=== PATIENT | male | born 1995 | race Hispanic/Latino ===

== ENCOUNTER 2025-10-21 19:59 | Inpatient (IN) | payer SELFPAY ==
[~2025-10-21] VITALS: Ht 177.8 cm; Wt 83.6 kg
--- NOTE | 2025-10-21 20:45 | ERN ---
ED Note History of Present Illness Stated Complaint: EXTREME ABDOMINAL PAIN Chief Complaint: Abdominal Pain Time Seen by MD: 20:04 Time Seen by Midlevel: 20:19 Dictation: PATIENT IS A 30-YEAR-OLD MALE COMING IN TONIGHT WITH COMPLAINTS OF PERIUMBILICAL PAIN NAUSEA VOMITING ONSET WAS YESTERDAY. HE DENIES FEVER CHILLS. STATES HE HAS NOT HAD A BOWEL MOVEMENT. HE STATES HE HAS A PRIMARY CARE DOCTOR HOWEVER DID NOT GO TODAY BECAUSE HE THOUGHT IT WAS GOING TO GO AWAY. STATES HE STILL HAS A APPENDIX Allergies: Coded Allergies: No Known Drug Allergies (Unverified Allergy, Unknown, 10/21/25) Past Medical History Past Medical History: No Pertinent History Surgical History: None RN Note Reviewed/Agreed w/PFSH: Yes Review of System Dictation CONSTITUTIONAL: NEGATIVE EXCEPT FOR HPI HEAD/FACE: NEGATIVE EXCEPT FOR HPI EENT: NEGATIVE EXCEPT FOR HPI RESPIRATORY: NEGATIVE EXCEPT FOR HPI GASTROINTESTINAL/ABDOMINAL: NEGATIVE EXCEPT FOR HPI PERIUMBILICAL PAIN WITH NAUSEA VOMITING GENITOURINARY: NEGATIVE EXCEPT FOR HPI MUSCULOSKELETAL: NEGATIVE EXCEPT FOR HPI INTEGUMENTARY: NEGATIVE EXCEPT FOR HPI NEUROLOGICAL/PSYCH: NEGATIVE EXCEPT FOR HPI HEMATOLOGIC/LYMPHATIC: NEGATIVE EXCEPT FOR HPI ALL SYSTEMS NEGATIVE, EXCEPT NOTED ABOVE. 13 POINT REVIEW OF SYSTEMS ASSESSED AND ALL NEGATIVE EXCEPT FOR ABOVE. Initial Vital Sign VS Vital Signs Date Time Temp Pulse Resp B/P (MAP) Pulse Ox O2 Delivery O2 Flow Rate FiO2 10/21/25 20:00 98.8 96 16 104/77 99 0 10/21/25 23:31 Room Air* 21 Physical Exam Dictation VITAL SIGNS REVIEWED GENERAL APPEARANCE: ALERT, ORIENTED X 3, MODERATE ACUTE DISTRESS, WELL DEVELOPED, NOURISHED. HEAD AND FACE: NON-TRAUMATIC. EYES: PERRL, PINK CONJUNCTIVAS, EYELID NO TRAUMA, ANTERIOR CHAMBER WITH ARCUS SENILIS. EARS: PINNAS INTACT AND NO SIGNS OF TRAUMA OR ERYTHEMA EAR CANALS CLEAR AND NO DISCHARGE TM NO ERYTHEMA NOSE: NO DISCHARGE, NO BLEEDING. OROPHARYNX: MOUTH NORMAL, TONGUE PINK, PHARYNX CLEAR,NO ERYTHEMA, TONSILS NO EXUDATES, NO ABSCESSES NOTED, MUCOUS MEMBRANE MOIST NECK: SUPPLE, NON-TENDER, NO THYROMEGALY, NO MASSES, NO JVD, NO BRUITS BREAST:DEFERRED CHEST:NO TENDERNESS, NO CREPITUS, NO PARADOXICAL MOVEMENT, NO RETRACTIONS LUNGS:CLEAR, WELL-VENTILATED, SYMMETRIC, NO RALES, NO WHEEZING, NO RHONCHI, NO STRIDOR, GOOD BREATH SOUNDS BILATERALLY HEART: REGULAR RATE, REGULAR RHYTHM, NO MURMUR, NO GALLOPS VASCULAR: NO PERIPHERAL EDEMA, ABDOMEN: SOFT, POSITIVE BOWEL SOUNDS, NONDISTENDED, PATIENT IS GUARDING WITH EXQUISITE PERIUMBILICAL PAIN. RECTAL: DEFERRED GENITAL: DEFERRED NEUROLOGICAL: NORMAL SPEECH, MOTOR FUNCTION INTACT, SENSORY FUNCTION INTACT MUSCULOSKELETAL: NECK NONTENDER, FULL RANGE OF MOTION, BACK NONTENDER, FULL RANGE OF MOTION, EXTREMITIES: NONTENDER, FULL RANGE OF MOTION SKIN: COLOR PINK, DRY, NO TURGOR, NO RASH, NO LACERATIONS, NO ABRASIONS, NO CONTUSIONS. LYMPHATIC: DEFERRED Results (Laboratory/Radiology) Laboratory/Radiology Laboratory Tests Test 10/21/25 20:49 10/21/25 22:44 White Blood Count 15.9 K/uL (4.8-10.8) H Red Blood Count 4.63 MIL/uL (4.50-6.20) Hemoglobin 14.2 g/dL (14.0-18.0) Hematocrit 41.0 % (42-54) L Mean Corpuscular Volume 88.6 fL (79-99) Mean Corpuscular Hemoglobin 30.7 pg (27.0-33.0) Mean Corpuscular Hemoglobin Concent 34.6 g/dL (32.0-36.0) Red Cell Distribution Width 12.2 % (11.0-15.5) Platelet Count 236 K/uL (130-400) Mean Platelet Volume 10.0 fL (7.5-10.5) Immature Granulocyte % (Auto) 0.6 % (0-1) Neutrophils (%) (Auto) 87.3 % (40.0-77.0) H Lymphocytes (%) (Auto) 5.9 % (21.0-51.0) L Monocytes (%) (Auto) 6.1 % (3.0-13.0) Eosinophils (%) (Auto) 0.0 % (0.0-8.0) Basophils (%) (Auto) 0.1 % (0.0-5.0) Neutrophils # (Auto) 13.9 K/uL (1.8-7.7) H Lymphocytes # (Auto) 0.9 K/uL (1.0-4.8) L Monocytes # (Auto) 1.0 K/uL (0.1-1.0) Eosinophils # (Auto) 0.00 K/uL (0.00-0.70) Basophils # (Auto) 0.02 K/uL (0.00-0.20) Absolute Immature Granulocyte (auto 0.09 K/uL (0-1) Nucleated Red Blood Cells 0.0 % (0.0-0.19) White Cell Morphology Comment See comments Sodium Level 136 mmol/L (136-145) Potassium Level 3.5 mmol/L (3.5-5.1) Chloride Level 99 mmol/L (101-111) L Carbon Dioxide Level 26 mmol/L (21-32) Blood Urea Nitrogen 7 mg/dL (7-18) Creatinine 0.8 mg/dL (0.5-1.3) Glomerular Filtration Rate Calc 121 mL/min (>90) Random Glucose 119 mg/dL (70-105) H Total Calcium 9.1 mg/dL (8.5-10.1) Lipase 58 U/L (16-77) Urine Color LIGHT-YELLOW (YELLOW) Urine Appearance CLEAR (CLEAR) Urine pH 7.5 (5.0-8.0) Urine Specific Grace 1.018 (1.001-1.031) Urine Protein NEGATIVE mg/dL (NEGATIVE) Urine Glucose (UA) NEGATIVE mg/dL (NEGATIVE) Urine Ketones 5 mg/dL (NEGATIVE) H Urine Occult Blood NEGATIVE (NEGATIVE) Urine Nitrate NEGATIVE (NEGATIVE) Urine Bilirubin NEGATIVE mg/dL (NEGATIVE) Urine Urobilinogen 0.2 mg/dL (0.2-1.0) Urine Leukocyte Esterase NEGATIVE Sameer/uL Urine RBC 0-1 /HPF (0-1) Urine WBC 0-1 /HPF (0-1) Urine Bacteria None /HPF (None Seen) : 1995 SEX: M AGE: 30 LOCATION: [facility] ORDER 42 STATUS: REG ER REPORT#: [id number] SERVICE 41 REASON: PERIUMBILICAL PAIN NAUSEA VOMITING ORDERING PHYSICIAN: TISH GALDAMEZ PROCEDURE: ABD PEL W - CT ABDOMEN/PELVIS W/CONTRAST EXAM: CT Abdomen and Pelvis with IV contrast CLINICAL HISTORY: Periumbilical pain. Nausea and vomiting. TECHNIQUE: Postcontrast thin collimated axial CT images of the abdomen and pelvis were obtained with sagittal and coronal reformatted images also submitted. CT scan is done according to ALARA (As Low As Reasonably Achievable). COMPARISON: None. FINDINGS: The included lungs are clear. Mild fatty liver. No focal abnormality within the gallbladder, pancreas, spleen, adrenals, or kidneys. Unremarkable urinary bladder. The prostate is within normal limits. Diffusely dilated and thickened appendix with periappendiceal fat stranding, the appendix measures up to 1.3 cm in diameter. The features are compatible with acute appendicitis. Nondilated fluid-filled small and large bowel loops without any zone of transition; this could be a nonspecific finding, or may be present in the clinical setting of acute enterocolitis. No bowel obstruction Grossly unremarkable abdominal vessels. No pathological lymphadenopathy in the abdomen or pelvis. No ascites or pneumoperitoneum. No acute bony abnormality is evident. IMPRESSIONS: Acute appendicitis without perforation or abscess. Nondilated fluid-filled small and large bowel loops without any zone of transition; this could be a nonspecific finding, or may be present in the clinical setting of acute enterocolitis. /[facility] Labs Reviewed?: Yes ED Course ED Course Orders Procedure Category Date Status Time Cbc With Differential LAB 10/21/25 Complete 20:42 Urinalysis Profile LAB 10/21/25 Complete 20:42 Ct Abdomen/Pelvis CT 10/21/25 Resulted W/Contrast 20:42 0.9%Nacl 1000ml (Ns PHA 10/21/25 Complete 1000ml) 21:00 Morphine 2mg Syg PHA 10/21/25 Complete (Morphine 2mg Syg) 21:00 Lipase LAB 10/21/25 Complete 20:42 Basic Metabolic Panel LAB 10/21/25 Complete 20:42 Iohexol (Omnipaque) PHA 10/21/25 Complete 22:14 Zosyn 3.375gm+Ns 50ml PHA 10/22/25 In Process (Zosyn 3.375gm+Ns 00:00 Morphine 2mg Syg PHA 10/22/25 In Process (Morphine 2mg Syg) 00:00 General Surgery CONPHYSVC 10/21/25 Transmitted Consult 23:34 Current Medications Medications (Trade) Dose Ordered Sig/Shira Route PRN Reason Start Time Stop Time Status Last Admin Dose Admin Iohexol (Omnipaque) 75 ml STK-MED ONCE IV 10/21/25 22:14 10/21/25 22:14 DC Morphine Sulfate (morPHINE 2MG SYG) 2 mg ONCE ONCE IVP 10/21/25 21:00 10/21/25 21:59 DC 10/21/25 22:03 Morphine Sulfate (morPHINE 2MG SYG) 2 mg ONCE ONCE IVP 10/22/25 00:00 10/22/25 00:01 Piperacillin Sod/ Tazobactam Sod (Zosyn 3.375gm+NS 50ml) 3.375 gm ONCE ONCE IVPB 10/22/25 00:00 10/22/25 00:01 Sodium Chloride 1,000 ml @ 0 mls/hr ONCE ONCE IV 10/21/25 21:00 10/21/25 21:59 DC 10/21/25 22:03 Vital Signs Date Time Temp Pulse Resp B/P (MAP) Pulse Ox O2 Delivery O2 Flow Rate FiO2 10/21/25 23:31 79 18 120/65 99 Room Air* 0 21 10/21/25 20:00 98.8 96 16 104/77 99 0 6202/DR.RAQUEL OWEN, GENERAL SURGERY PAGED 2346/SPOKE WITH REVIEWED LABS AND CT SHE SAID TO HAVE PATIENT ADMITTED AND SHE WOULD SEE HIM TOMORROW. 2020/[facility]OKE WITH [facility] RE[facility]ED [facility]S CT AND INTERVENTIONS WITH FLUIDS PAIN MANAGEMENT X2 AND ZOSYN SHE IS AWARE THAT I HAVE ALREADY SPOKEN TO GENERAL SURGEON AND AGREED TO ADMIT PATIENT. Medical Decision Making MDM MDM: DIFFERENTIAL DIAGNOSIS: APPENDICITIS/DIVERTICULITIS/UTI/HERNIA/ELECTROLYTE IMBALANCE/DEHYDRATION/ RATIONALE: TESTS CONSIDERED AND ORDERED SECONDARY TO SHARED DECISION MAKING INCLUDE: LABS, ECG PREVIOUS OUTSIDE RECORDS REVIEWED: OLD ER VISITS. RISK OF COMPLICATION AND/OR MORBIDITY OR MORTALITY OF PATIENT MANAGEMENT: NONE MEDICATIONS-PER MEDICATION RECONCILIATION NEED FOR HOSPITALIZATION: PATIENT DOES MEET CRITERIA FOR HOSPITALIZATION. NEED FOR EMERGENCY MAJOR/MINOR SURGERY: NO THERE ARE NO SOCIAL CONCERNS WITH THIS PATIENT. PRESCRIPTION DRUG MANAGEMENT PRESCRIPTIONS WILL INCLUDE SYMPTOMATIC CARE PATIENT'S PRIOR EXTERNAL MEDICAL RECORDS FROM OTHER ER VISITS WERE REVIEWED BY ME INDICATED. PRIOR TESTING AND RESULTS FROM PREVIOUS VISITS WERE REVIEWED. PRIOR TESTS WERE TAKEN INTO ACCOUNT WITH MEDICAL DECISION MAKING AND RESOURCE UTILIZATION, INDEPENDENT HISTORIAN/HISTORIANS WERE USED TO OBTAIN COMPLETE MEDICAL HISTORY. I INDEPENDENTLY INTERPRETED THE TEST THAT WERE PERFORMED, RESULTS WERE REVIEWED BY ME AND CONSIDERED FINDINGS ON RADIOLOGY IF ORDERED. MEDICAL MANAGEMENT AND EXAMINATION INTERPRETATION DISCUSSIONS WERE HAD BY ME WITH OTHER QUALIFIED HEALTHCARE PROFESSIONALS INDICATED FOR THE PATIENT'S CARE. DX & DISP Disposition: Inpatient Decision to Admit Time: 23:39 Departure Impression: Primary Impression: Acute appendicitis Additional Impressions: Colitis, Nausea & vomiting, Hypochloremia, Hyperglycemia Condition: Stable Referrals: NONE (PCP) Time of Disposition: 23:39 I have reviewed the case, and I agree with, Diagnosis and Plan TISH GALDAMEZ PANTRY COOK Oct 21, 2025 20:45
[2025-10-21 21:04] LABS: IMMATURE GRANULOCYTE ABSOLUTE 0.09 K/uL (0-1); NUCLEATED RED BLOOD CELLS 0.0 % (0.0-0.19); PLATELET COUNT (AUTO) 236 K/uL (130-400); RED BLOOD CELL COUNT(AUTO) 4.63 MIL/uL (4.50-6.20); RED CELL DISTRIBUTION WIDTH 12.2 % (11.0-15.5); WHITE BLOOD COUNT (AUTO) 15.9 K/uL (4.8-10.8)
[2025-10-21 21:13] LABS: CREATININE 0.8 mg/dL (0.5-1.3); GLOMERULAR FILTR. RATE CALC 121.0 mL/min (>90); GLUCOSE,RANDOM 119.0 mg/dL (70-105); SODIUM SERUM 136.0 mmol/L (136-145); UREA NITROGEN, BLOOD 7.0 mg/dL (7-18)
[2025-10-21] MEDS: 0.9%NACL 1000ML 1,000 ML IV ONE (22:03)
[2025-10-21] MEDS ORDERED: IOHEXOL-350 75 ML VIAL IV ONE (22:14)
[2025-10-21 22:54] LABS: APPEARANCE,URINE CLEAR (CLEAR); GLUCOSE, URINE (UA) NEGATIVE (NEGATIVE); LEUKOCYTE ESTERASE ,URINE NEGATIVE Leu/uL (NEGATIVE); NITRATE,URINE NEGATIVE (NEGATIVE); OCCULT BLOOD,URINE NEGATIVE (NEGATIVE)
[2025-10-21 22:55] LABS: ADD UA MICROSCOPIC YES
--- NOTE | 2025-10-21 23:26 | HMCIMG ---
EXAM: CT Abdomen and Pelvis with IV contrast CLINICAL HISTORY: Periumbilical pain. Nausea and vomiting. TECHNIQUE: Postcontrast thin collimated axial CT images of the abdomen and pelvis were obtained with sagittal and coronal reformatted images also submitted. CT scan is done according to ALARA (As Low As Reasonably Achievable). COMPARISON: None. FINDINGS: The included lungs are clear. Mild fatty liver. No focal abnormality within the gallbladder, pancreas, spleen, adrenals, or kidneys. Unremarkable urinary bladder. The prostate is within normal limits. Diffusely dilated and thickened appendix with periappendiceal fat stranding, the appendix measures up to 1.3 cm in diameter. The features are compatible with acute appendicitis. Nondilated fluid-filled small and large bowel loops without any zone of transition; this could be a nonspecific finding, or may be present in the clinical setting of acute enterocolitis. No bowel obstruction Grossly unremarkable abdominal vessels. No pathological lymphadenopathy in the abdomen or pelvis. No ascites or pneumoperitoneum. No acute bony abnormality is evident. IMPRESSIONS: Acute appendicitis without perforation or abscess. Nondilated fluid-filled small and large bowel loops without any zone of transition; this could be a nonspecific finding, or may be present in the clinical setting of acute enterocolitis. /Darell
--- NOTE | 2025-10-21 23:46 | HP ---
[facility] HISTORY [facility] PHYSICAL Date of Service: Oct 21, 2025 Time of Service: 23:45 PCP: Self REferral HISTORY OF PRESENT ILLNESS: This is a 30 year old male with no pertinent medical and surgical history who presents to the ED for complaints of periumbilical pain which started tonight.Patient states he had been having nausea and non bloody vomiting last night more than 15X episodes he said and this morning he started having subjective fever and chills and today he started having periumbilical pain and as the day progressed pain became localized to right lower quadrant area so he decided to come to the Ed for evaluation.Patient reports he just recently take a medication shot called Retatrutide for weight loss and he thinks this is the reason why he has an abdominal pain he said.Patient reports last bowel movement was yesterday and it was normal. Seen and examined patient in the ED awake,alert and coherent,continue to complain of 6/10 abdominal pain level.Patient denies chest pain,palpitation ,cough,shortness of breath and diarrhea. Latest vital signs temperature 98.8, heart rate 83, blood pressure 123/75 saturation 98% on room air. Labs: WBC 15 negative left shift on neutrophils 87, hemoglobin 14, hematocrit 41, platelet count 236. Sodium 136, chloride 99, glucose 119 the rest of the chemistries normal. Urinalysis significant for keep urine ketones five otherwise normal. CT abdomen and pelvis with contrast result revealed acute appendicitis without perforation or abscess. Nondilated fluid-filled small and large bowel loops without NS zone of transition this could be a nonspecific finding or may be present in the clinical setting of acute enterocolitis. While in the ER patient received 1 L NS bolus, morphine 2 mg IV Zosyn IV. We will admit patient for further medical management. REVIEW OF SYSTEMS CONSTITUTIONAL: Complains of fever and chills Denies night sweats. No unintentional weight loss reported. NEUROLOGICAL: Denies headache, amaurosis fugax, motor weakness, sensory deficit, vertigo/spinning sensation, gait abnormalities, or tremors. ENT: No hearing loss, otalgia, otorrhea, rhinitis, rhinorrhea, hoarseness, or sore throat. CARDIOVASCULAR: Denies any exertional angina, dyspnea on exertion, orthopnea, paroxysmal nocturnal dyspnea, palpitations, life-threatening arrhythmias, claudication. PULMONARY: Denies any shortness of breath, cough, phlegm/sputum, hemoptysis, pleuritic chest pain. SLEEP: Denies morning headaches, daytime somnolence or napping. Denies difficu lty falling asleep, staying asleep, waking from sleep. Denies knowledge of snoring. GASTROINTESTINAL: Complaints of nausea vomiting and abdominal pain Denies any type of dysphagia to either liquids or solids. Denies pyrosis, early satiety, diarrhea, constipation, or changes in stool consistency or caliber. Denies coffee-ground emesis, hematemesis, hematochezia, or melanotic stools. GENITOURINARY: Denies frequency, urgency, nocturia, hematuria or incontinence (Storage/Irritative symptoms.) Low urinary stream, straining to void, urinary intermittency or hesitancy, splitting of the voiding stream, terminal dribbling. ENDOCRINOLOGIC: Denies polyuria, polydipsia, polyphagia or heat/cold intolerances. HEMATOLOGIC: Denies thrombophilia/previous clots, or coagulopathy/bleeding d isorders. ONCOLOGIC: Denies personal history of malignancy. DERMATOLOGIC: Denies rashes or pruritus. PSYCHIATRIC: Denies any suicidal or homicidal ideation. Denies hallucinations. PAST MEDICAL HISTORY: [ Patient denies] PAST SURGICAL HISTORY: [ Patient denies] PAST SOCIAL HISTORY: [ Patient lives with family. Patient denies alcohol tobacco and recreational drug use. Patient reports he drinks socially 2 beers per month .] FAMILY HISTORY: [ Noncontributory ] Coded Allergies: No Known Drug Allergies (Unverified Allergy, Unknown, 10/21/25) PHYSICAL EXAM GENERAL APPEARANCE: The patient is awake, alert, and oriented, in no acute cardiopulmonary distress. NEUROLOGICAL: Cranial nerves II-XII grossly intact. Motor is 5/5 in bilateral upper and lower extremities proximal to distal. No sensory deficits. HEENT: Face is symmetric. Pupils are equal and reactive. Extraocular movements are intact. NECK: Supple. No JVD. No thyromegaly. No submental, submandibular, pre- /postauricular, occipital or supraclavicular lymphadenopathy. CHEST: Normal chest expansion. No Telemetry. LUNGS: Absence of any rales, rhonchi or any wheezing. CARDIOVASCULAR: Regular. S1 and S2 normal. No appreciable rubs, murmurs or gallops. ABDOMEN: Rebound tenderness around right lower quadrant on palpation Soft, and nondistended. There is no voluntary guarding, or rigidity. : Deferred. No Mosqueda. EXTREMITIES: Non-edematous and not cyanotic. No clubbing. Good capillary refill. SKIN: No skin breakdown. Vital Sign (Last 24 Hours) 10/21/25 10/21/25 20:00 23:31 Temp 98.8 Pulse 79 Resp 18 B/P (MAP) 120/65 Pulse Ox 99 O2 Delivery Room Air* O2 Flow Rate 0 FiO2 21 LABS: Laboratory: Test 10/21/25 22:44 10/21/25 20:49 Range/Units Urine Color LIGHT-YELLOW YELLOW Urine Appearance CLEAR CLEAR Urine pH 7.5 5.0-8.0 Urine Specific Eldred 1.018 1.001-1.031 Urine Protein NEGATIVE NEGATIVE mg/dL Urine Glucose (UA) NEGATIVE NEGATIVE mg/dL Urine Ketones 5 H NEGATIVE mg/dL Urine Occult Blood NEGATIVE NEGATIVE Urine Nitrate NEGATIVE NEGATIVE Urine Bilirubin NEGATIVE NEGATIVE mg/dL Urine Urobilinogen 0.2 0.2-1.0 mg/dL Urine Leukocyte Esterase NEGATIVE NEGATIVE Sameer/uL Urine RBC 0-1 0-1 /HPF Urine WBC 0-1 0-1 /HPF Urine Bacteria None None Seen /HPF White Blood Count 15.9 H 4.8-10.8 K/uL Red Blood Count 4.63 4.50-6.20 MIL/uL Hemoglobin 14.2 14.0-18.0 g/dL Hematocrit 41.0 L 42-54 % Mean Corpuscular Volume 88.6 79-99 fL Mean Corpuscular Hemoglobin 30.7 27.0-33.0 pg Mean Corpuscular Hemoglobin Concent 34.6 32.0-36.0 g/dL Red Cell Distribution Width 12.2 11.0-15.5 % Platelet Count 236 130-400 K/uL Mean Platelet Volume 10.0 7.5-10.5 fL Immature Granulocyte % (Auto) 0.6 0-1 % Neutrophils (%) (Auto) 87.3 H 40.0-77.0 % Lymphocytes (%) (Auto) 5.9 L 21.0-51.0 % Monocytes (%) (Auto) 6.1 3.0-13.0 % Eosinophils (%) (Auto) 0.0 0.0-8.0 % Basophils (%) (Auto) 0.1 0.0-5.0 % Neutrophils # (Auto) 13.9 H 1.8-7.7 K/uL Lymphocytes # (Auto) 0.9 L 1.0-4.8 K/uL Monocytes # (Auto) 1.0 0.1-1.0 K/uL Eosinophils # (Auto) 0.00 0.00-0.70 K/uL Basophils # (Auto) 0.02 0.00-0.20 K/uL Absolute Immature Granulocyte (auto 0.09 0-1 K/uL Nucleated Red Blood Cells 0.0 0.0-0.19 % White Cell Morphology Comment See comments Sodium Level 136 136-145 mmol/L Potassium Level 3.5 3.5-5.1 mmol/L Chloride Level 99 L 101-111 mmol/L Carbon Dioxide Level 26 21-32 mmol/L Blood Urea Nitrogen 7 7-18 mg/dL Creatinine 0.8 0.5-1.3 mg/dL Glomerular Filtration Rate Calc 121 >90 mL/min Random Glucose 119 H 70-105 mg/dL Total Calcium 9.1 8.5-10.1 mg/dL Lipase 58 16-77 U/L DIAGNOSTICS / RADIOLOGY: [ ] ASSESSMENT: Acute appendicitis without perforation or abscess per CT POA Acute leukocytosis POA PLAN: We will admit patient in medical surgical We will keep nothing by mouth Continue Zosyn IV Q 8 hours for empiric coverage Start famotidine 20 mg IV daily for GI prophylaxis We will start NS @ 100 ml / hr x2 bags and re evaluate We will replace electrolytes as needed per protocol We will add prn medication for fever,pain,cough , nausea and vomiting We will reconcile home meds once medlist available We will seek general surgery consultation We will request labs in am Further orders to follow depending on above results Case discussed with attending physician and came up with above treatment and plan of care. ADVANCED CARE PLANNING 1. Which of the following were discussed? Hospice Care - No Therapeutic options - Yes Advance Directives - No Other discussions - 2. Discussed with who? Patient 3. Voluntary nature of this service was explained to the patient? Yes 4. Amount of time spent - __22 min 5. Reviewed by Physician? (if this service was performed by NPP) Yes Patient seen and examined by me. Agree with note by METAL POLISHER AND BUFFER APPRENTICE SEE ADDITIONAL ORDERS PER CHART DISCUSSED WITH NURSING STAFF JAKE BUTLER [facility] Oct 21, 2025 23:45
[2025-10-21] MEDS: ZOSYN 3.375GM +NS 50ML IVPB ONE (23:50)
[2025-10-22] VITALS (24 sets, daily range): BP systolic 102–168; BP diastolic 47–92; PULSE 51–101; RESP 12–22; TEMP 97.5–99; O2SAT 94–97
[2025-10-22] MEDS ORDERED: MAGNESIUM 2GM PREMIX 50ML 50 ML IV PRN (02:00)
[2025-10-22] MEDS: 0.9%NACL 1000ML 1,000 ML IV SCH (02:10)
[2025-10-22] MEDS: ZOSYN 3.375GM+NS 50ML 50 ML IV SCH (06:01)
[2025-10-22 06:02] LABS: IMMATURE GRANULOCYTE ABSOLUTE 0.05 K/uL (0-1); NUCLEATED RED BLOOD CELLS 0.0 % (0.0-0.19); PLATELET COUNT (AUTO) 209 K/uL (130-400); RED BLOOD CELL COUNT(AUTO) 4.26 MIL/uL (4.50-6.20); RED CELL DISTRIBUTION WIDTH 12.2 % (11.0-15.5); WHITE BLOOD COUNT (AUTO) 13.5 K/uL (4.8-10.8)
[2025-10-22 06:15] LABS: INR 1.06 (0.85-1.15)
[2025-10-22 06:29] LABS: ASPARTATE AMINOTRANSFERASE 12.0 U/L (10-37); CREATININE 0.8 mg/dL (0.5-1.3); GLOMERULAR FILTR. RATE CALC 121.0 mL/min (>90); GLUCOSE,RANDOM 101.0 mg/dL (70-105); SODIUM SERUM 137.0 mmol/L (136-145); TOTAL PROTEIN, SERUM 7.1 g/dL (6.0-8.3); UREA NITROGEN, BLOOD 8.0 mg/dL (7-18)
[2025-10-22] MEDS: FAMOTIDINE 20MG VIAL IV SCH (08:22)
--- NOTE | 2025-10-22 09:27 | PN ---
[facility] PROGRESS NOTE Date of Service: Oct 22, 2025 Time of Service: 09:25 SUBJECTIVE: Follow up visit for a 31-year-old male admitted to the hospital for acute appendicitis. Patient remains NPO, on maintenance IVF. Consultation with surgeon has been requested. Morning labs reviewed. REVIEW OF SYSTEMS CONSTITUTIONAL: Complains of fever and chills Denies night sweats. No unintentional weight loss reported. NEUROLOGICAL: Denies headache, amaurosis fugax, motor weakness, sensory deficit, vertigo/spinning sensation, gait abnormalities, or tremors. ENT: No hearing loss, otalgia, otorrhea, rhinitis, rhinorrhea, hoarseness, or sore throat. CARDIOVASCULAR: Denies any exertional angina, dyspnea on exertion, orthopnea, paroxysmal nocturnal dyspnea, palpitations, life-threatening arrhythmias, claudication. PULMONARY: Denies any shortness of breath, cough, phlegm/sputum, hemoptysis, pleuritic chest pain. SLEEP: Denies morning headaches, daytime somnolence or napping. Denies difficulty falling asleep, staying asleep, waking from sleep. Denies knowledge of snoring. GASTROINTESTINAL: Complaints of nausea vomiting and abdominal pain Denies any type of dysphagia to either liquids or solids. Denies pyrosis, early satiety, diarrhea, constipation, or changes in stool consistency or caliber. Denies coffee-ground emesis, hematemesis, hematochezia, or melanotic stools. GENITOURINARY: Denies frequency, urgency, nocturia, hematuria or incontinence (Storage/Irritative symptoms.) Low urinary stream, straining to void, urinary intermittency or hesitancy, splitting of the voiding stream, terminal dribbling. ENDOCRINOLOGIC: Denies polyuria, polydipsia, polyphagia or heat/cold intolerances. HEMATOLOGIC: Denies thrombophilia/previous clots, or coagulopathy/bleeding disorders. ONCOLOGIC: Denies personal history of malignancy. DERMATOLOGIC: Denies rashes or pruritus. PSYCHIATRIC: Denies any suicidal or homicidal ideation. Denies hallucinations. PHYSICAL EXAM GENERAL APPEARANCE: The patient is awake, alert, and oriented, in no acute cardiopulmonary distress. NEUROLOGICAL: Cranial nerves II-XII grossly intact. Motor is 5/5 in bilateral upper and lower extremities proximal to distal. No sensory deficits. HEENT: Face is symmetric. Pupils are equal and reactive. Extraocular movements are intact. NECK: Supple. No JVD. No thyromegaly. No submental, submandibular, pre- /postauricular, occipital or supraclavicular lymphadenopathy. CHEST: Normal chest expansion. No Telemetry. LUNGS: Absence of any rales, rhonchi or any wheezing. CARDIOVASCULAR: Regular. S1 and S2 normal. No appreciable rubs, murmurs or gallops. ABDOMEN: Rebound tenderness around right lower quadrant on palpation Soft, and nondistended. There is no voluntary guarding, or rigidity. : Deferred. No Mosqu[place]. EXTREMITIES: Non-edematous and not cyanotic. No clubbing. Good capillary refill. SKIN: No skin breakdown. Vital Signs (last 8hr) Date Time Temp Pulse Resp B/P (MAP) Pulse Ox O2 Delivery O2 Flow Rate FiO2 10/22/25 08:11 94 Room Air* 0 21 10/22/25 08:09 98.6 82 18 111/70 94 Room Air 10/22/25 02:20 97 Room Air* 0 21 10/22/25 02:20 99.0 76 18 122/71 97 Room Air LABS: Laboratory: Test 10/22/25 05:54 10/21/25 22:44 10/21/25 20:49 Range/Units White Blood Count 13.5 H 4.8-10.8 K/uL Red Blood Count 4.26 L 4.50-6.20 MIL/uL Hemoglobin 13.2 L 14.0-18.0 g/dL Hematocrit 37.9 L 42-54 % Mean Corpuscular Volume 89.0 79-99 fL Mean Corpuscular Hemoglobin 31.0 27.0-33.0 pg Mean Corpuscular Hemoglobin Concent 34.8 32.0-36.0 g/dL Red Cell Distribution Width 12.2 11.0-15.5 % Platelet Count 209 130-400 K/uL Mean Platelet Volume 9.8 7.5-10.5 fL Immature Granulocyte % (Auto) 0.4 0-1 % Neutrophils (%) (Auto) 76.0 40.0-77.0 % Lymphocytes (%) (Auto) 16.9 L 21.0-51.0 % Monocytes (%) (Auto) 6.4 3.0-13.0 % Eosinophils (%) (Auto) 0.1 0.0-8.0 % Basophils (%) (Auto) 0.2 0.0-5.0 % Neutrophils # (Auto) 10.3 H 1.8-7.7 K/uL Lymphocytes # (Auto) 2.3 1.0-4.8 K/uL Monocytes # (Auto) 0.9 0.1-1.0 K/uL Eosinophils # (Auto) 0.01 0.00-0.70 K/uL Basophils # (Auto) 0.03 0.00-0.20 K/uL Absolute Immature Granulocyte (auto 0.05 0-1 K/uL Nucleated Red Blood Cells 0.0 0.0-0.19 % Prothrombin Time 11.2 9.6-11.6 SEC Prothromb Time International Ratio 1.06 0.85-1.15 Activated Partial Thromboplast Time 30.0 26.3-35.5 SEC Sodium Level 137 136-145 mmol/L Potassium Level 3.4 L 3.5-5.1 mmol/L Chloride Level 103 101-111 mmol/L Carbon Dioxide Level 26 21-32 mmol/L Blood Urea Nitrogen 8 7-18 mg/dL Creatinine 0.8 0.5-1.3 mg/dL Glomerular Filtration Rate Calc 121 >90 mL/min Random Glucose 101 70-105 mg/dL Total Calcium 8.4 L 8.5-10.1 mg/dL Magnesium Level 2.20 1.80-2.40 mg/dL Total Bilirubin 0.9 0.2-1.0 mg/dL Aspartate Amino Transf (AST/SGOT) 12 10-37 U/L Alanine Aminotransferase (ALT/SGPT) 20 12-78 U/L Alkaline Phosphatase 67 50-136 U/L Total Protein 7.1 6.0-8.3 g/dL Albumin 3.6 3.5-5.0 g/dL Urine Color LIGHT-YELLOW YELLOW Urine Appearance CLEAR CLEAR Urine pH 7.5 5.0-8.0 Urine Specific Pe Ell 1.018 1.001-1.031 Urine Protein NEGATIVE NEGATIVE mg/dL Urine Glucose (UA) NEGATIVE NEGATIVE mg/dL Urine Ketones 5 H NEGATIVE mg/dL Urine Occult Blood NEGATIVE NEGATIVE Urine Nitrate NEGATIVE NEGATIVE Urine Bilirubin NEGATIVE NEGATIVE mg/dL Urine Urobilinogen 0.2 0.2-1.0 mg/dL Urine Leukocyte Esterase NEGATIVE NEGATIVE Sameer/uL Urine RBC 0-1 0-1 /HPF Urine WBC 0-1 0-1 /HPF Urine Bacteria None None Seen /HPF White Cell Morphology Comment See comments Lipase 58 16-77 U/L Current Medications Medications (Trade) Dose Ordered Sig/Shira Route PRN Reason Start Time Stop Time Status Last Admin Dose Admin Acetaminophen (TYLenol 325MG TAB) 650 mg Q4H PRN PO MILD PAIN (1-3) 10/22/25 02:00 11/21/25 01:59 Acetaminophen (TYLenol 325MG TAB) 650 mg Q6H PRN PO TEMPERATURE GREATER THAN 101.5 10/22/25 02:00 11/21/25 01:59 Famotidine (Pepcid 20mg Vial) 20 mg DAILY IV 10/22/25 09:00 11/21/25 08:59 10/22/25 08:22 20 MG Magnesium Sulfate 50 ml @ 0 mls/hr PROTOCOL PRN IV OTHER [SEE ORDER COMMENTS] 10/22/25 02:00 11/21/25 01:59 Morphine Sulfate (morPHINE 2MG SYG) 2 mg Q4H PRN IV SEVERE PAIN (7-10) 10/22/25 02:00 10/29/25 01:59 10/22/25 03:44 2 MG Ondansetron HCl (zoFRAN 4MG INJ) 4 mg Q6H PRN IV NAUSEA/VOMITING 10/22/25 02:00 11/21/25 01:59 Piperacillin Sod/ Tazobactam Sod 50 ml @ 12.5 mls/hr [id number] IV 10/22/25 05:00 11/01/25 04:59 10/22/25 06:01 12.5 MLS/HR Potassium Chloride 100 ml @ 50 mls/hr AD PRN IV POTASSIUM PROTOCOL 10/22/25 02:00 11/21/25 01:59 Sodium Chloride 1,000 ml @ 100 mls/hr Q10H IV 10/22/25 02:00 11/21/25 01:59 10/22/25 02:10 100 MLS/HR DIAGNOSTICS / RADIOLOGY: [ ] ASSESSMENT: Acute appendicitis without perforation or abscess per CT POA Acute leukocytosis POA PLAN: Continue admission to medical surgical floor We will keep nothing by mouth Continue Zosyn IV Q 8 hours for empiric coverage Continue famotidine 20 mg IV daily for GI prophylaxis Continue NS @ 100 ml / hr We will replace electrolytes as needed per protocol We will add prn medication for fever,pain,cough , nausea and vomiting We will reconcile home meds once medlist available general surgery consultation requested, follow up with recommendations We will request labs in am Further orders to follow depending on above results Case discussed with attending physician and came up with above treatment and plan of care. ANGELA DOVER PAC Oct 22, 2025 09:27
--- NOTE | 2025-10-22 12:53 | NUR ---
DCP: INITIAL ASSESSMENT Patient lives alone. He has no home services. Patient has BPM at home. He is able to complete ADLs but needs help at this time. Patient is not driving. [facility]CP is at [facility]. [facility]acy [facility]. Patient voiced no safety concerns regarding returning home and states he has no difficulty with housing or buying food. DCP is home. Patient has no insurance or benefits. He was provided with community resources for post hospitalization follow up. Patient was also provided with Good RX card for prescriptions and educated on [facility] $4 medication program and [facility] $5 medication program. Patient is being assisted by [facility] for financial matters.
[2025-10-22] MEDS ORDERED: MIDAZOLAM HCL 1 MG/ML 2ML VIAL ONE (12:59)
[2025-10-22] MEDS ORDERED: GLYCOPYRROLATE 0.2 MG/ML 5 ML VIAL ONE (14:16)
[2025-10-22] MEDS ORDERED: NEOSTIGMINE METHYLSULFATE 1MG/ML IV ONE (14:16)
--- NOTE | 2025-10-22 15:06 | CONS ---
GENERAL SURGERY CONSULTATION NOTE DATE OF CONSULTATION: Oct 22, 2025 TIME OF CONSULTATION: 15:02 CONSULTING SERVICE: Doroteo Dutta MD REQUESTING PHYSICAIN: [ ] REASON FOR CONSULTATION: [ ] HISTORY OF PRESENT ILLNESS: 30-year-old male that is started with the acute onset of abdominal pain on that continued to progress and started with nausea vomiting on Friday came in because he could not tolerate the pain and was found to have acute appendicitis. PAST MEDICAL HISTORY: [ ] None PAST SURGICAL HISTORY: None FAMILY HISTORY: [ ] SOCIAL HISTORY: [ ] Current Medications Medications (Trade) Dose Ordered Sig/Shira Route Start Time Stop Time Status Last Admin Dose Admin Famotidine (Pepcid 20mg Vial) 20 mg DAILY IV 10/22/25 09:00 11/21/25 08:59 10/22/25 08:22 20 MG Piperacillin Sod/ Tazobactam Sod 50 ml @ 12.5 mls/hr [id number] IV 10/22/25 05:00 11/01/25 04:59 10/22/25 06:01 12.5 MLS/HR Sodium Chloride 1,000 ml @ 100 mls/hr Q10H IV 10/22/25 02:00 11/21/25 01:59 10/22/25 02:10 100 MLS/HR Allergies: Coded Allergies: No Known Drug Allergies (Unverified Allergy, Unknown, 10/21/25) REVIEW OF SYSTEMS: [place]: [Denies headaches or blurring of vision.] RESP: [No cough, chest pain or SOB.] CVS: [No palpitaions.] All other systems are reviewed and essentially negative pertinent positives in HPI. PHYSICAL EXAMINATION: GENERAL: [Patient is lying comfortably in bed, not in any obvious distress.] HEAD: [Normal with no signs of head trauma.] NECK: Trachea midline LUNGS: No respiratory distress HEART: [Regular rate and rhythm. ABD: [Bowel sounds present,soft, positive McBurney sign EXT: [ Warm soft, non tender.] SKIN: [ No rashes or lesions.] NEURO: [ Awake Alert and oriented x3.] Vital Signs (last 8hr) Date Time Temp Pulse Resp B/P (MAP) Pulse Ox O2 Delivery O2 Flow Rate FiO2 10/22/25 14:57 61 17 113/75 97 Room Air 10/22/25 14:52 58 19 114/79 97 Room Air 10/22/25 14:47 62 22 122/80 96 Room Air 10/22/25 14:42 76 13 123/79 97 Room Air 10/22/25 14:37 62 21 115/70 100 Nonrebreathing Mask 100 10/22/25 14:32 51 14 116/70 100 Nonrebreathing Mask 100 10/22/25 14:27 97.9 66 12 123/47 100 Nonrebreathing Mask 100 10/22/25 12:00 98.2 79 18 102/64 95 Room Air 10/22/25 08:11 94 Room Air* 0 21 10/22/25 08:09 98.6 82 18 111/70 94 Room Air LABORATORY: [ ] Hematology Labs: Test 10/22/25 05:54 10/21/25 20:49 Range/Units White Blood Count 13.5 H 4.8-10.8 K/uL Red Blood Count 4.26 L 4.50-6.20 MIL/uL Hemoglobin 13.2 L 14.0-18.0 g/dL Hematocrit 37.9 L 42-54 % Mean Corpuscular Volume 89.0 79-99 fL Mean Corpuscular Hemoglobin 31.0 27.0-33.0 pg Mean Corpuscular Hemoglobin Concent 34.8 32.0-36.0 g/dL Red Cell Distribution Width 12.2 11.0-15.5 % Platelet Count 209 130-400 K/uL Mean Platelet Volume 9.8 7.5-10.5 fL Immature Granulocyte % (Auto) 0.4 0-1 % Neutrophils (%) (Auto) 76.0 40.0-77.0 % Lymphocytes (%) (Auto) 16.9 L 21.0-51.0 % Monocytes (%) (Auto) 6.4 3.0-13.0 % Eosinophils (%) (Auto) 0.1 0.0-8.0 % Basophils (%) (Auto) 0.2 0.0-5.0 % Neutrophils # (Auto) 10.3 H 1.8-7.7 K/uL Lymphocytes # (Auto) 2.3 1.0-4.8 K/uL Monocytes # (Auto) 0.9 0.1-1.0 K/uL Eosinophils # (Auto) 0.01 0.00-0.70 K/uL Basophils # (Auto) 0.03 0.00-0.20 K/uL Absolute Immature Granulocyte (auto 0.05 0-1 K/uL Nucleated Red Blood Cells 0.0 0.0-0.19 % White Cell Morphology Comment See comments Chemistry Labs: Test 10/22/25 05:54 10/21/25 20:49 Range/Units Sodium Level 137 136-145 mmol/L Potassium Level 3.4 L 3.5-5.1 mmol/L Chloride Level 103 101-111 mmol/L Carbon Dioxide Level 26 21-32 mmol/L Blood Urea Nitrogen 8 7-18 mg/dL Creatinine 0.8 0.5-1.3 mg/dL Glomerular Filtration Rate Calc 121 >90 mL/min Random Glucose 101 70-105 mg/dL Total Calcium 8.4 L 8.5-10.1 mg/dL Magnesium Level 2.20 1.80-2.40 mg/dL Total Bilirubin 0.9 0.2-1.0 mg/dL Aspartate Amino Transf (AST/SGOT) 12 10-37 U/L Alanine Aminotransferase (ALT/SGPT) 20 12-78 U/L Alkaline Phosphatase 67 50-136 U/L Total Protein 7.1 6.0-8.3 g/dL Albumin 3.6 3.5-5.0 g/dL Lipase 58 16-77 U/L Coagulation Labs: Test 10/22/25 05:54 Range/Units Prothrombin Time 11.2 9.6-11.6 SEC Prothromb Time International Ratio 1.06 0.85-1.15 Activated Partial Thromboplast Time 30.0 26.3-35.5 SEC DIAGNOSTICS / RADIOLOGY: [Copy/Paste Echos/Imaging Report here] ASSESSMENT: Acute appendicitis PLAN: NPO/IVF/IV ANTIOBIOTICS Schedule for OR We talked about various treatment options including but not limited to surgery. We talked about risks and benefits of surgery, patient verbalized understanding has agreed to proceed [laparoscopic appendectomy possible open. All risks were discussed with the patient and he agrees to proceed KRISTIN OWEN MD Oct 22, 2025 15:05
--- NOTE | 2025-10-22 15:06 | OP ---
Operative Note: DATE OF PROCEDURE: 10/22/25 SURGEON: KRISTIN OWEN MD PROCEDURE:Laparoscopic appendectomy. ANESTHESIA: General endotracheal. PREOPERATIVE DIAGNOSIS: Appendicitis. POSTOPERATIVE DIAGNOSIS: Acute appendicitis without perforation. DEVICES LEFT IN PLACE: None. FLUID AND BLOOD PRODUCTS: Per anesthesia report. BLOOD LOSS: Minimal. SPECIMENS REMOVED: Appendix. COMPLICATIONS: None immediate. SURGEON: Kristin Owen MD. DESCRIPTION OF PROCEDURE: The patient was brought to the operating room and placed on the operating table in supine position where general endotracheal anesthesia was achieved. We then proceeded to prep and drape the abdomen in sterile fashion, created a longitudinal incision at the umbilicus, and dissected down through the skin, subcutaneous tissue, and fascia to expose the fascia and incise the fascia at the midline using a #15 blade and entered the abdominal cavity. We introduced a trocar, obtained pneumoperitoneum, and then under di rect visualization, we proceeded to place two 5-mm trocars, one in the suprapubic position and the other in the left lower quadrant. We then proceeded to evaluate the pelvis. We evaluated the appendix and it has changes of acute appendicitis. We therefore proceeded to release the appendix from all its adhesions using blunt and sharp dissection with a LigaSure and then proceeded to create a window at the base of the appendix with a [place] dissector and divided the mesoappendix with the LigaSure device. Once the base of the appendix was free, we then proceeded to divide the appendix with the [place] vascular load stapler. Placed the appendix into the Endo Catch bag. We inspected the pelvis again and we did not find any signs of an abscess or any other signs of infection. Then, under direct visualization, we proceeded to remove our trocars and there was no bleeding from the abdominal wall. We removed the appendix from the abdomen using the EndoCatch bag and relieved the pneumoperitoneum. We closed the fascia at the umbilicus using a 0-Vicryl stitch in the [id number] fashion and then the skin was closed using a skin staple r. The patient tolerated the procedure well. I was present as well during the entire procedure. All counts were correct x 2 at the end of the procedure. KRISTIN OWEN MD Oct 22, 2025 15:06
--- NOTE | 2025-10-22 15:15 | NUR ---
PATIENT ARRIVED TO UNIT. VS: 111/72, 65 BPM, 98 % SP02 ON RA. PATIENT HAS 3 ABDOMINAL INCISIONS TEGADERM AND OPTIFOAM CLEAN AND DRY. PATIENT 0/0 PAIN. PATIENT IS RUNNING FLUIDS AND IS VERBALIZING FEELING THE SENSATION TO URINATE. URINAL IS AT BEDSIDE. PATIENT WAS EDUCATED TO CALL NURSE WHEN HE URINATES. SCDS IN PLACE. NO OTHER NEEDS VERBALIZED.
--- NOTE | 2025-10-22 17:28 | NUR ---
PATIENT COMPLAINED AGAIN OF BURNING SENSATION WHILE URINATING. ALFREDO ZHOU WAS MADE AWARE. NO ORDERS RECEIVED AT THIS TIME. WILL CONTINUE TO MONITOR.
[2025-10-22] MEDS ORDERED: PoTASSium chl 10% ELIXIR 20MEQ 20 MEQ/15 ML UDCUP PO PRN (18:30)
[2025-10-22] MEDS: PoTASSium chloRIDE 20MEQ ER 20 MEQ ERTAB PO PRN (18:47)
[2025-10-22] MEDS: CALDOLOR 800MG+NS 250ML 250 ML IV ONE (19:51)
[2025-10-22] MEDS: SIMETHICONE 80 MG TAB.CHEW PO SCH (20:54)
[2025-10-23] VITALS (8 sets, daily range): BP systolic 90–127; BP diastolic 50–75; PULSE 67–99; RESP 16–18; TEMP 97.4–98.4; O2SAT 97
[2025-10-23 05:48] LABS: CREATININE 1.0 mg/dL (0.5-1.3); GLOMERULAR FILTR. RATE CALC 103.0 mL/min (>90); GLUCOSE,RANDOM 90.0 mg/dL (70-105); SODIUM SERUM 139.0 mmol/L (136-145); UREA NITROGEN, BLOOD 7.0 mg/dL (7-18)
[2025-10-23 05:53] LABS: IMMATURE GRANULOCYTE ABSOLUTE 0.05 K/uL (0-1); NUCLEATED RED BLOOD CELLS 0.0 % (0.0-0.19); PLATELET COUNT (AUTO) 251 K/uL (130-400); RED BLOOD CELL COUNT(AUTO) 4.52 MIL/uL (4.50-6.20); RED CELL DISTRIBUTION WIDTH 12.3 % (11.0-15.5); WHITE BLOOD COUNT (AUTO) 12.2 K/uL (4.8-10.8)
--- NOTE | 2025-10-23 08:32 | NUR ---
PATIENT WAS EDUCATED ON THE IMPORTANCE TO AMBULATE AT LEAST 3X DURING THIS SHIFT. PATIENT VERBALIZED HE WALKED LAST NIGHT 2X AND HE WAS ABLE TO HAVE A BM. PATIENT VERBALIZED UNDERSTANDING AND EXPRESSED HE WOULD WALK LATER TODAY.
--- NOTE | 2025-10-23 10:57 | PN ---
[facility] PROGRESS NOTE Date of Service: Oct 23, 2025 Time of Service: 10:55 SUBJECTIVE: Follow up visit for a 31-year-old male admitted to the hospital for acute appendicitis. Patient remains NPO, on maintenance IVF. Consultation with surgeon has been requested. Morning labs reviewed. 10/23/2025: POD 1 laparoscopic appendectomy. Patient tolerated procedure well. Patient remains on CLD at this time. He continues on IV Zosyn, morning labs WBCs 12 K. REVIEW OF SYSTEMS CONSTITUTIONAL: Complains of fever and chills Denies night sweats. No unintentional weight loss reported. NEUROLOGICAL: Denies headache, amaurosis fugax, motor weakness, sensory deficit, vertigo/spinning sensation, gait abnormalities, or tremors. ENT: No hearing loss, otalgia, otorrhea, rhinitis, rhinorrhea, hoarseness, or sore throat. CARDIOVASCULAR: Denies any exertional angina, dyspnea on exertion, orthopnea, paroxysmal nocturnal dyspnea, palpitations, life-threatening arrhythmias, claudication. PULMONARY: Denies any shortness of breath, cough, phlegm/sputum, hemoptysis, pleuritic chest pain. SLEEP: Denies morning headaches, daytime somnolence or napping. Denies difficulty falling asleep, staying asleep, waking from sleep. Denies knowledge of snoring. GASTROINTESTINAL: Complaints of nausea vomiting and abdominal pain Denies any type of dysphagia to either liquids or solids. Denies pyrosis, early satiety, diarrhea, constipation, or changes in stool consistency or caliber. Denies coffee-ground emesis, hematemesis, hematochezia, or melanotic stools. GENITOURINARY: Denies frequency, urgency, nocturia, hematuria or incontinence (Storage/Irritative symptoms.) Low urinary stream, straining to void, urinary intermittency or hesitancy, splitting of the voiding stream, terminal dribbling. ENDOCRINOLOGIC: Denies polyuria, polydipsia, polyphagia or heat/cold intolerances. HEMATOLOGIC: Denies thrombophilia/previous clots, or coagulopathy/bleeding disorders. ONCOLOGIC: Denies personal history of malignancy. DERMATOLOGIC: Denies rashes or pruritus. PSYCHIATRIC: Denies any suicidal or homicidal ideation. Denies hallucinations. PHYSICAL EXAM GENERAL APPEARANCE: The patient is awake, alert, and oriented, in no acute cardiopulmonary distress. NEUROLOGICAL: Cranial nerves II-XII grossly intact. Motor is 5/5 in bilateral upper and lower extremities proximal to distal. No sensory deficits. HEENT: Face is symmetric. Pupils are equal and reactive. Extraocular movements are intact. NECK: Supple. No JVD. No thyromegaly. No submental, submandibular, pre- /postauricular, occipital or supraclavicular lymphadenopathy. CHEST: Normal chest expansion. No Telemetry. LUNGS: Absence of any rales, rhonchi or any wheezing. CARDIOVASCULAR: Regular. S1 and S2 normal. No appreciable rubs, murmurs or gallops. ABDOMEN: Rebound tenderness around right lower quadrant on palpation Soft, and nondistended. There is no voluntary guarding, or rigidity. : Deferred. No Mosqueda. EXTREMITIES: Non-edematous and not cyanotic. No clubbing. Good capillary refill. SKIN: No skin breakdown. Vital Signs (last 8hr) Date Time Temp Pulse Resp B/P (MAP) Pulse Ox O2 Delivery O2 Flow Rate FiO2 10/23/25 08:04 Room Air* 0 21 10/23/25 08:00 98.1 82 18 99/50 95 Room Air 10/23/25 04:35 98.1 82 18 117/75 97 Room Air LABS: Laboratory: Test 10/23/25 04:50 10/22/25 05:54 10/21/25 22:44 10/21/25 20:49 Range/Units White Blood Count 12.2 H 4.8-10.8 K/uL Red Blood Count 4.52 4.50-6.20 MIL/uL Hemoglobin 13.9 L 14.0-18.0 g/dL Hematocrit 41.0 L 42-54 % Mean Corpuscular Volume 90.7 79-99 fL Mean Corpuscular Hemoglobin 30.8 27.0-33.0 pg Mean Corpuscular Hemoglobin Concent 33.9 32.0-36.0 g/dL Red Cell Distribution Width 12.3 11.0-15.5 % Platelet Count 251 130-400 K/uL Mean Platelet Volume 10.4 7.5-10.5 fL Immature Granulocyte % (Auto) 0.4 0-1 % Neutrophils (%) (Auto) 83.6 H 40.0-77.0 % Lymphocytes (%) (Auto) 10.7 L 21.0-51.0 % Monocytes (%) (Auto) 5.2 3.0-13.0 % Eosinophils (%) (Auto) 0.0 0.0-8.0 % Basophils (%) (Auto) 0.1 0.0-5.0 % Neutrophils # (Auto) 10.2 H 1.8-7.7 K/uL Lymphocytes # (Auto) 1.3 1.0-4.8 K/uL Monocytes # (Auto) 0.6 0.1-1.0 K/uL Eosinophils # (Auto) 0.00 0.00-0.70 K/uL Basophils # (Auto) 0.01 0.00-0.20 K/uL Absolute Immature Granulocyte (auto 0.05 0-1 K/uL Nucleated Red Blood Cells 0.0 0.0-0.19 % Sodium Level 139 136-145 mmol/L Potassium Level 4.1 3.5-5.1 mmol/L Chloride Level 104 101-111 mmol/L Carbon Dioxide Level 26 21-32 mmol/L Blood Urea Nitrogen 7 7-18 mg/dL Creatinine 1.0 0.5-1.3 mg/dL Glomerular Filtration Rate Calc 103 >90 mL/min Random Glucose 90 70-105 mg/dL Total Calcium 8.8 8.5-10.1 mg/dL Prothrombin Time 11.2 9.6-11.6 SEC Prothromb Time International Ratio 1.06 0.85-1.15 Activated Partial Thromboplast Time 30.0 26.3-35.5 SEC Magnesium Level 2.20 1.80-2.40 mg/dL Total Bilirubin 0.9 0.2-1.0 mg/dL Aspartate Amino Transf (AST/SGOT) 12 10-37 U/L Alanine Aminotransferase (ALT/SGPT) 20 12-78 U/L Alkaline Phosphatase 67 50-136 U/L Total Protein 7.1 6.0-8.3 g/dL Albumin 3.6 3.5-5.0 g/dL Urine Color LIGHT-YELLOW YELLOW Urine Appearance CLEAR CLEAR Urine pH 7.5 5.0-8.0 Urine Specific [place] 1.018 1.001-1.031 Urine Protein NEGATIVE NEGATIVE mg/dL Urine Glucose (UA) NEGATIVE NEGATIVE mg/dL Urine Ketones 5 H NEGATIVE mg/dL Urine Occult Blood NEGATIVE NEGATIVE Urine Nitrate NEGATIVE NEGATIVE Urine Bilirubin NEGATIVE NEGATIVE mg/dL Urine Urobilinogen 0.2 0.2-1.0 mg/dL Urine Leukocyte Esterase NEGATIVE NEGATIVE Sameer/uL Urine RBC 0-1 0-1 /HPF Urine WBC 0-1 0-1 /HPF Urine Bacteria None None Seen /HPF White Cell Morphology Comment See comments Lipase 58 16-77 U/L Current Medications Medications (Trade) Dose Ordered Sig/Shira Route PRN Reason Start Time Stop Time Status Last Admin Dose Admin Acetaminophen (TYLenol 325MG TAB) 650 mg Q4H PRN PO MILD PAIN (1-3) 10/22/25 02:00 11/21/25 01:59 Acetaminophen (TYLenol 325MG TAB) 650 mg Q6H PRN PO TEMPERATURE GREATER THAN 101.5 10/22/25 02:00 11/21/25 01:59 Famotidine (Pepcid 20mg Vial) 20 mg DAILY IV 10/22/25 09:00 11/21/25 08:59 10/23/25 08:28 20 MG Ketorolac Tromethamine (toRADol) 15 mg Q6H PRN IV MODERATE PAIN (4-6) 10/22/25 19:00 10/27/25 18:59 Magnesium Sulfate 50 ml @ 0 mls/hr PROTOCOL PRN IV OTHER [SEE ORDER COMMENTS] 10/22/25 02:00 11/21/25 01:59 Morphine Sulfate (morPHINE 2MG SYG) 2 mg Q4H PRN IV SEVERE PAIN (7-10) 10/22/25 02:00 10/29/25 01:59 10/22/25 03:44 2 MG Ondansetron HCl (zoFRAN 4MG INJ) 4 mg Q6H PRN IV NAUSEA/VOMITING 10/22/25 02:00 11/21/25 01:59 Piperacillin Sod/ Tazobactam Sod 50 ml @ 12.5 mls/hr ZOSY8 IV 10/22/25 05:00 11/01/25 04:59 10/23/25 05:29 12.5 MLS/HR Potassium Chloride 100 ml @ 50 mls/hr AD PRN IV POTASSIUM PROTOCOL 10/22/25 02:00 10/22/25 18:20 DC Potassium Chloride 100 ml @ 100 mls/hr AD PRN IV POTASSIUM PROTOCOL 10/22/25 18:30 11/21/25 18:29 Potassium Chloride (K-Dur/Klor-Con 20meq) 20 meq AD PRN PO POTASSIUM PROTOCOL 10/22/25 18:30 11/21/25 18:29 10/22/25 20:54 20 MEQ Potassium Chloride (KCl 10% Elixir 20meq/15ml) 20 meq AD PRN PO POTASSIUM PROTOCOL 10/22/25 18:30 11/21/25 18:29 Simethicone (Mylicon) 80 mg TID PO 10/22/25 21:00 11/21/25 20:59 10/23/25 08:28 80 MG Sodium Chloride 1,000 ml @ 100 mls/hr Q10H IV 10/22/25 02:00 10/22/25 23:53 DC 10/22/25 20:54 100 MLS/HR DIAGNOSTICS / RADIOLOGY: [ ] ASSESSMENT: Acute appendicitis without perforation or abscess per CT POA Acute leukocytosis POA PLAN: Continue admission to medical surgical floor POD one laparoscopic appendectomy. Continue to follow up with surgical team. Patient currently on CLD, we will advanced as tolerated Continue Zosyn IV Q 8 hours for empiric coverage Continue famotidine 20 mg IV daily for GI prophylaxis We will replace electrolytes as needed per protocol We will add prn medication for fever,pain,cough , nausea and vomiting We will reconcile home meds once medlist available general surgery consultation requested, follow up with recommendations We will request labs in am Further orders to follow depending on above results Case discussed with attending physician and came up with above treatment and plan of care. ANGELA DOVER PAC Oct 23, 2025 10:57
--- NOTE | 2025-10-23 15:41 | PN ---
This is a 30-year-old male status post laparoscopic appendectomy by Dr. Booker Interval history: This 30-year-old male seen in his room resting Patient with some penis discomfort status post Mosqueda placement and removal for surgery Patient tolerating diet Patient with a bowel movement Labs and vitals stable Physical exam General: Awake alert and oriented Heart: Regular rate and rhythm} Lungs: Clear to auscultation no distress Abdomen: [Soft, nontender, nondistended expected postoperative discomfort Assessment : This is a 30-year-old male status post appendectomy by Dr. Booker Plan: From surgical standpoint once patient is cleared medically patient is cleared from surgical standpoint for discharge home Recommendation will be to follow up in two weeks with Dr. Booker is office Avoid any heavy lifting Avoid constipation Monitor for signs of infection Dr. Booker to be updated on patient's status Surgical case has been discussed with my supervising physician in the above plan was formulated and agreed upon We appreciate the hospitalist team for us to participate in patient's care. Greater than 45 minutes of time spent patient, reviewing chart, working on documentation Vitals/Labs Vital Signs Date Time Temp Pulse Resp B/P (MAP) Pulse Ox O2 Delivery O2 Flow Rate FiO2 10/23/25 12:00 98.4 69 16 105/65 100 10/23/25 08:04 Room Air* 0 21 Laboratory Tests 10/23/25 04:50 Medications Current Medications Sodium Chloride 1,000 ml @ 0 mls/hr ONCE ONCE IV Last administered on 10/21/25at 22:03; Start 10/21/25 at 21:00; Stop 10/21/25 at 21:59; Status DC Morphine Sulfate 2 mg ONCE ONCE IVP Last administered on 10/21/25at 22:03; Start 10/21/25 at 21:00; Stop 10/21/25 at 21:59; Status DC Iohexol 75 ml STK-MED ONCE IV; Start 10/21/25 at 22:14; Stop 10/21/25 at 22:14; Status DC Piperacillin Sod/ Tazobactam Sod 3.375 gm ONCE ONCE IVPB Last administered on 10/21/25at 23:50; Start 10/22/25 at 00:00; Stop 10/22/25 at 00:01; Status DC Morphine Sulfate 2 mg ONCE ONCE IVP Last administered on 10/21/25at 23:50; Start 10/22/25 at 00:00; Stop 10/22/25 at 00:01; Status DC Acetaminophen 650 mg Q6H PRN PO; Start 10/22/25 at 02:00; Stop 11/21/25 at 01:59 Acetaminophen 650 mg Q4H PRN PO; Start 10/22/25 at 02:00; Stop 11/21/25 at 01:59 Ondansetron HCl 4 mg Q6H PRN IV; Start 10/22/25 at 02:00; Stop 11/21/25 at 01:59 Piperacillin Sod/ Tazobactam Sod 50 ml @ 12.5 mls/hr ZOSY8 IV Last administered on 10/23/25at 13:17; Start 10/22/25 at 05:00; Stop 11/01/25 at 04:59 Morphine Sulfate 2 mg Q4H PRN IV Last administered on 10/22/25at 03:44; Start 10/22/25 at 02:00; Stop 10/29/25 at 01:59 Sodium Chloride 1,000 ml @ 100 mls/hr Q10H IV Last administered on 10/22/25at 20:54; Start 10/22/25 at 02:00; Stop 10/22/25 at 23:53; Status DC Famotidine 20 mg DAILY IV Last administered on 10/23/25at 08:28; Start 10/22/25 at 09:00; Stop 11/21/25 at 08:59 Magnesium Sulfate 50 ml @ 0 mls/hr PROTOCOL PRN IV; Start 10/22/25 at 02:00; Stop 11/21/25 at 01:59 Potassium Chloride 100 ml @ 50 mls/hr AD PRN IV; Start 10/22/25 at 02:00; Stop 10/22/25 at 18:20; Status DC Midazolam HCl 2 mg STK-MED ONCE .ROUTE; Start 10/22/25 at 12:59; Stop 10/22/25 at 12:59; Status DC Fentanyl Citrate 100 mcg STK-MED ONCE .ROUTE; Start 10/22/25 at 12:59; Stop 10/22/25 at 12:59; Status DC Propofol 200 mg STK-MED ONCE IV; Start 10/22/25 at 13:00; Stop 10/22/25 at 13:00; Status DC Rocuronium [place] 50 mg STK-MED ONCE .ROUTE; Start 10/22/25 at 13:00; Stop 10/22/25 at 13:00; Status DC Ondansetron HCl 4 mg STK-MED ONCE .ROUTE; Start 10/22/25 at 13:10; Stop 10/22/25 at 13:10; Status DC Ibuprofen 250 ml @ As Directed STK-MED ONCE IV; Start 10/22/25 at 13:14; Stop 10/22/25 at 13:15; Status DC Phenylephrine HCl 10 mg STK-MED ONCE IV; Start 10/22/25 at 13:55; Stop 10/22/25 at 13:55; Status DC Bupivacaine HCl 2.5 mg STK-MED ONCE IJ; Start 10/22/25 at 13:59; Stop 10/22/25 at 13:59; Status DC Glycopyrrolate 1 mg STK-MED ONCE .ROUTE; Start 10/22/25 at 14:16; Stop 10/22/25 at 14:16; Status DC Neostigmine Methylsulfate 10 mg STK-MED ONCE IV; Start 10/22/25 at 14:16; Stop 10/22/25 at 14:16; Status DC Fentanyl Citrate 100 mcg STK-MED ONCE .ROUTE; Start 10/22/25 at 14:17; Stop 10/22/25 at 14:17; Status DC Fentanyl Citrate 100 mcg STK-MED ONCE .ROUTE; Start 10/22/25 at 15:18; Stop 10/22/25 at 15:19; Status DC Ketorolac Tromethamine 15 mg Q6H PRN IV; Start 10/22/25 at 19:00; Stop 10/27/25 at 18:59 Simethicone 80 mg TID PO Last administered on 10/23/25at 13:17; Start 10/22/25 at 21:00; Stop 11/21/25 at 20:59 Potassium Chloride 100 ml @ 100 mls/hr AD PRN IV; Start 10/22/25 at 18:30; Stop 11/21/25 at 18:29 Potassium Chloride 20 meq AD PRN PO; Start 10/22/25 at 18:30; Stop 11/21/25 at 18:29 Potassium Chloride 20 meq AD PRN PO Last administered on 10/22/25at 20:54; Start 10/22/25 at 18:30; Stop 11/21/25 at 18:29 Bupivacaine HCl 75 mg STK-MED ONCE IJ Last administered on 10/22/25at 14:00; Start 10/22/25 at 14:00; Stop 10/22/25 at 18:38; Status DC TRACIE WYATT Jr. PAC Oct 23, 2025 15:41
[2025-10-24 03:26] LABS: IMMATURE GRANULOCYTE ABSOLUTE 0.01 K/uL (0-1); NUCLEATED RED BLOOD CELLS 0.0 % (0.0-0.19); PLATELET COUNT (AUTO) 194 K/uL (130-400); RED BLOOD CELL COUNT(AUTO) 4.02 MIL/uL (4.50-6.20); RED CELL DISTRIBUTION WIDTH 12.4 % (11.0-15.5); WHITE BLOOD COUNT (AUTO) 7.3 K/uL (4.8-10.8)
[2025-10-24 03:33] LABS: CREATININE 1.1 mg/dL (0.5-1.3); GLOMERULAR FILTR. RATE CALC 91.0 mL/min (>90); GLUCOSE,RANDOM 94.0 mg/dL (70-105); SODIUM SERUM 140.0 mmol/L (136-145); UREA NITROGEN, BLOOD 9.0 mg/dL (7-18)
[2025-10-24 04:00] VITALS: BP 104/59; PULSE 62; RESP 16; TEMP 98.1
[2025-10-24] MEDS ORDERED: PoTASSium chloRIDE 20MEQ ER 20 MEQ ERTAB PO ONE (07:00)
[2025-10-24 07:15] VITALS: BP 115/72; PULSE 69; RESP 18; TEMP 98.1
[2025-10-24] MEDS: PoTASSium chloRIDE 20MEQ ER 20 MEQ ERTAB PO ONE (08:59)
[2025-10-24 09:00] VITALS: O2SAT 98
[2025-10-24 11:14] VITALS: BP 105/61; PULSE 66; RESP 16; TEMP 98.5
--- NOTE | 2025-10-24 11:14 | DS ---
Discharge Summary Hospital Course Summary: DATE OF ADMISSION:[10/21/2025] DATE OF DISCHARGE:[10/24/2025] DISPOSITION:[Home] CONDITION:[Medically stable] CONSULTANTS:[Surgeon] FOLLOW UP APPOINTMENTS:[PCP 2 to 3 days. Surgeon within two weeks] PROCEDURES:[10/22/2025 appendectomy] IMAGING: report attached to summary MICROBIOLOGY: report attached to summary ACTIVITY:[Independent] HOME MEDICATIONS: see [facility] NEW MEDICATIONS:[Doxycycline 100 mg p.o. b.i.d.] EMERGENCY INSTRUCTIONS: The patient was instructed to present to the nearest Emergency departmentr or call 911 once their symptoms will return or worsen Veterinary Technician(s): Patient is 30 years old male who came to emergency department with a complaint of abdominal pain. CT abdomen/pelvis was performed on admission and showed acute appendicitis with a perforation or abscess. Surgeon was consulted and on 10/22/2025 appendectomy was performed. After surgery patient was placed on full liquid diet and today is already on GI soft. Patient is passing gases and also is having bowel movements. Patient is tolerating food intake. Patient denies any shortness of breath, chest pain, nausea, vomiting or any abdominal pain. Patient was cleared by the surgeon to be discharged home. Follow up outpatient with the PCP in 2 to 3 days. Follow up with surgeon within two weeks. . Procedure(s): REVIEW OF SYSTEMS CONSTITUTIONAL: Denies any fevers or chills Denies night sweats. No unintentional weight loss reported. NEUROLOGICAL: Denies headache, amaurosis fugax, motor weakness, sensory deficit, vertigo/spinning sensation, gait abnormalities, or tremors. ENT: No hearing loss, otalgia, otorrhea, rhinitis, rhinorrhea, hoarseness, or sore throat. CARDIOVASCULAR: Denies any exertional angina, dyspnea on exertion, orthopnea, paroxysmal nocturnal dyspnea, palpitations, life-threatening arrhythmias, claudi cation. PULMONARY: Denies any shortness of breath, cough, phlegm/sputum, hemoptysis, pleuritic chest pain. SLEEP: Denies morning headaches, daytime somnolence or napping. Denies difficulty falling asleep, staying asleep, waking from sleep. Denies knowledge of snoring. GASTROINTESTINAL: Any nausea vomiting or abdominal pain Denies any type of dysphagia to either liquids or solids. Denies pyrosis, early satiety, diarrhea, constipation, or changes in stool consistency or caliber. Denies coffee-ground emesis, hematemesis, hematochezia, or melanotic stools. GENITOURINARY: Denies frequency, urgency, nocturia, hematuria or incontinence (Storage/Irritative symptoms.) Low urinary stream, straining to void, urinary intermittency or hesitancy, splitting of the voiding stream, terminal dribbling. ENDOCRINOLOGIC: Denies polyuria, polydipsia, polyphagia or heat/cold intolerances. HEMATOLOGIC: Denies thrombophilia/previous clots, or coagulopathy/bleeding disorders. ONCOLOGIC: Denies personal history of malignancy. DERMATOLOGIC: Denies rashes or pruritus. PSYCHIATRIC: Denies any suicidal or homicidal ideation. Denies hallucinations. PHYSICAL EXAM GENERAL APPEARANCE: The patient is awake, alert, and oriented, in no acute cardiopulmonary distress. NEUROLOGICAL: Cranial nerves II-XII grossly intact. Motor is 5/5 in bilateral upper and lower extremities proximal to distal. No sensory deficits. HEENT: Face is symmetric. Pupils are equal and reactive. Extraocular movements are intact. NECK: Supple. No JVD. No thyromegaly. No submental, submandibular, pre- /postauricular, occipital or supraclavicular lymphadenopathy. CHEST: Normal chest expansion. No Telemetry. LUNGS: Absence of any rales, rhonchi or any wheezing. CARDIOVASCULAR: Regular. S1 and S2 normal. No appreciable rubs, murmurs or gallops. ABDOMEN: Soft, and nondistended. There is no voluntary guarding, or rigidity. : Deferred. No Mosqueda. EXTREMITIES: Non-edematous and not cyanotic. No clubbing. Good capillary refill. SKIN: No skin breakdown. Assessment/Plan: ASSESSMENT: Acute appendicitis without perforation or abscess per CT POA S/p appendectomy 10/22/[address] Booker Acute leukocytosis POA Time spent arranging discharge: 31-60 minutes ATTESTATION BY PHYSICIAN I have seen and examined the patient. I reviewed the documentation, medical decision making, and treatment plan as noted by the mid-level provider above. I agree with the findings and plan of care. DANITZA MORAES MD, KATARZYNA B ANIMAL SCIENTIST Oct 24, 2025 11:14
--- NOTE | 2025-10-24 16:49 | NUR ---
GAVE PATIENT DISCHARGE INSTRUCTIONS. REMOVED PATIENTS IV WITH CATHETER INTACT. PATIENT WAS TAKEN DOWN VIA A WHEELCHAIR TO A PRIVATE VEHICLE.
== END 2025-10-24 16:49 | disposition home or self-care (01) | DRG 854 ==
LOC: EDH 19:59 → EDHIP 20:00 → 4AH 10-22 02:35
PROVIDERS: ADMIT Hospitalist; ATTEND Hospitalist
PROC: 0DTJ4ZZ Resection of Appendix, Percutaneous Endoscopic Approach (ICD-10-PCS; principal; 2025-10-22 13:59)
DX: A41.9 Sepsis, unspecified organism (principal); K35.80 Unspecified acute appendicitis
CPT/HCPCS: 36415; 74177; 80048; 80053; 81001; 83690; 83735; 85025; 85610; 85730; 88304; 96374; 96375; 99285; G0378; J1741; J2250; J2270; J2371; J2405; J2543; J2704; J2710; J3010; J3490; J7030; Q9967; A4649; A4930; A6206; C1713; C1769; J0665; J1308